=== PATIENT | male | born 1970 | race Caucasian/White ===

== ENCOUNTER 2017-03-27 15:42 | Inpatient (IN) | payer OTHER ==
[2017-03-27] MEDS ORDERED: ACETAMINOPHEN TAB 325 MG TAB PO PRN (16:14)
[2017-03-27] MEDS ORDERED: NA PHOS,M-B/NA PHOS,DI-BA 133 ML ENEMA RECTAL PRN (16:14)
[2017-03-27] MEDS ORDERED: MAGNESIUM HYDROXIDE 2,400 MG/10 ML CUP PO PRN (16:14)
[2017-03-27] MEDS ORDERED: ONDANSETRON 4 MG/2 ML VIAL IVP PRN (16:14)
[2017-03-27] MEDS ORDERED: TEMAZEPAM 15 MG CAP PO PRN (16:14)
[2017-03-27] MEDS ORDERED: NALOXONE 0.4 MG/ML 1 ML VIAL IV PRN (16:14)
[2017-03-27] MEDS ORDERED: KETOROLAC 30 MG/ML 1 ML VIAL IVP PRN (16:14)
[2017-03-27] MEDS ORDERED: HYDROmorphone 1 MG/ML 1 ML SYRINGE IV PRN (16:14)
[2017-03-27] MEDS ORDERED: BISACODYL 5 MG TABLET.DR PO PRN (16:14)
[2017-03-27] MEDS ORDERED: IV VANCOMYCIN PER PHARMACY 1 EACH MISC MISCELLANE PRN (16:24)
[2017-03-27] MEDS: LACTATED RINGERS 1,000 ML IV SCH (16:35)
[2017-03-27 16:57] LABS: Basophils % (A) 1 %; CHCM 33.2; Eosinophils # (A) 0.2 k/uL (0-0.7); Eosinophils % (A) 2 %; HCT 40.4 % (39.0-53.0); HDW 2.26; HGB 13.7 gm/dL (13.0-17.5); Luc # (Auto) 0.18; Luc % (Auto) 2; Lymphocytes # (A) 1.4 k/uL (1.0-4.8); Lymphocytes % (A) 17 %; MCH 30.7 pg (25.0-35.0); MCHC 33.9 g/dL (31.0-37.0); MCV 90.5 fL (80.0-100.0); Mean Platelet Volume 6.9; Monocytes # (A) 0.5 k/uL (0-1.0); Monocytes % (A) 6 %; Neutrophils # (A) 5.9 k/uL (1.3-7.7); Neutrophils % (A) 72 %; RBC 4.46 m/uL (4.30-5.90); RDW 12.8 % (11.5-15.5); WBC 8.1 k/uL (3.8-10.6); WBC (Perox) 8.26
[2017-03-27 17:02] LABS: ALT 55 U/L (21-72); AST 52 U/L (17-59); Alkaline Phosphatase 77 U/L (38-126); Anion Gap 10 mmol/L; Blood Urea Nitrogen 15 mg/dL (9-20); Carbon Dioxide 23 mmol/L (22-30); Chloride 107 mmol/L (98-107); Glucose 113 mg/dL (74-99); Non-African American GFR(MDRD) >60 (>60 ml/min/1.73 sqM); Potassium 4.1 mmol/L (3.5-5.1); Sodium 140 mmol/L (137-145); Total Bilirubin 1.2 mg/dL (0.2-1.3); Total Protein 7.6 g/dL (6.3-8.2)
[2017-03-27] MEDS ORDERED: VANCOMYCIN 1,750 MG in SODIUM CHLORIDE 0.9% 250 ML IVPB ONE (17:30)
[2017-03-27] MEDS ORDERED: KETOROLAC 30 MG/ML 1 ML VIAL IVP STA (21:56)
--- NOTE | 2017-03-27 22:33 | P.CONS ---
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 Some metal slag had dripped and he inadvertently placed his elbow onto the hot metal. He did receive a burn. He was treated locally. Recently started to have some increasing amount of pain into his forearm and elbow. He started to have some swelling and warmth. He was seen by his primary care physician. He was referred to orthopedics and upon their evaluation was admitted to hospital for a course of antibiotic therapy. Goal for stay is for antibiotics to avoid incision and drainage of the olecronon bursa. Patient denies high-grade fever chills rigors or sweats. The arm however is quite tender. He has pain with range of motion. There is pain when he touches the elbow and forearm area. He definitely notes the area of warmth and erythema. He has not had this problem in the past. Review of Systems HEENT:Denies headache or acute visual change. Denies sinus or mouth discomforts. Denies neck stiffness or pain. Denies significant oral cavity pain. Denies difficulty on swallowing. Lungs: Denies significant shortness of breath, cough, sputum production, or hemoptysis. Cardiovascular: Denies significant shortness of breath, chest pain, chest wall pain, orthopnea, dyspnea on exertion, syncope Gastrointestinal:Denies nausea, vomiting, diarrhea, constipation, hematemesis, melena, hematochezia. No no significant change of bowel habit noticed. Musculoskeletal: Per the HPI pain to the right arm. Skin: As per the HPI lesions of the right elbow from burn Neuro: Denies headache or visual change. Denies any new onset weakness or difficulty with ambulation. Denies falls or seizures. Psychiatric:Denies anxiety or depression. Endocrine: Denies significant fatigue, denies significant weight loss or weight gain. Past Medical History History of Any Multi-Drug Resistant Organisms: None Reported Additional Psychological History / Comment(s): . 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 Stopped smoking 5 years ago. No significant alcohol or recreational drug use. Multiple professional tattoos Smoking Status: Former smoker Medications and Allergies Home Medications and Allergies Comment(s): Current Medications Acetaminophen (Tylenol Tab) 650 mg PO Q6HR PRN PRN Reason: Mild Pain or Fever > 100.5 Bisacodyl (Dulcolax) 5 mg PO DAILY PRN PRN Reason: Constipation Hydromorphone HCl (Dilaudid) 1 mg IV Q3HR PRN PRN Reason: Severe Pain Lactated Ringer's (Lactated Ringers) 1,000 mls @ 20 mls/hr IV .Q24H HENRY Last Admin: 03/27/17 16:35 Dose: 20 mls/hr Vancomycin HCl 1,500 mg/ (Sodium Chloride) 250 mls @ 125 mls/hr IVPB Q8HR HENRY Cefazolin Sodium 2 gm/ Sodium (Chloride) 100 mls @ 100 mls/hr IVPB Q8HR [facility]ENRY Ketorolac Tromethamine (Toradol) 30 mg IVP Q6HR PRN PRN Reason: Moderate Pain Stop: 04/01/17 16:15 Magnesium Hydroxide (Milk Of Magnesia) 2,400 mg PO DAILY PRN PRN Reason: Constipation Miscellaneous Information (Pharmacy To Dose Iv Vancomycin) 1 each MISCELLANE DIRECTED PRN PRN Reason: Per Protocol Mupirocin (Bactroban Oint) 1 applic TOPICAL TID [facility] Naloxone HCl (Narcan) 0.2 mg IV Q2M PRN PRN Reason: Opioid Reversal Ondansetron HCl (Zofran) 4 mg IVP Q8HR PRN PRN Reason: Nausea And Vomiting Sodium Biphosphate/Sodium Phosphate (Fleet Adult) 133 ml RECTAL ONCE PRN PRN Reason: Constipation Temazepam (Restoril) 15 mg PO HS PRN PRN Reason: Insomnia Home Medications Medication Instructions Recorded Confirmed Type No Known Home Medications [No 03/27/17 03/27/17 History Known Home Medications] Allergies Allergy/AdvReac Type Severity Reaction Status Date / Time No Known Allergies Allergy Verified 03/27/17 16:29 Physical Exam Vitals: Vital Signs Temp Pulse Resp BP Pulse Ox 03/27/17 16:14 98 03/27/17 16:00 97.5 F L 77 16 138/74 98 Intake and Output 03/27/17 03/27/17 03/27/17 06:59 14:59 22:59 Other: Voiding Method Toilet # Voids 1 Weight 74.843 kg Patient Weight 03/28/17 06:59 Weight 74.843 kg 46-year-old male who is physically fit presents for the pain to his right elbow. HEENT: Anicteric conjunctiva are pink and moist nasal mucosa grossly intact without significant lesions, there is no thrush. Neck: The neck is supple without significant lymphadenopathy or thyromegaly. Lungs: Good bilateral air entry without significant crackles or wheezing. There is no significant bronchial sounds. There is no egophony or dullness. Heart: Regular rate and rhythm with an audible S1-S2, no S3 no S4. There is no significant murmur click or rub, PMI was nondisplaced. Abdomen: Positive bowel sounds soft and nontender without palpable masses or organomegaly. There was no guarding or rebound. Extremities: Left arm reveals evidence of no abnormalities. IV site is intact. Right upper extremity shows evidence of the recent burn to near the elbow. There is evidence of the significant erythema and swelling to the forearm that is quite tender. There is also tenderness over the olcreonon bursa The lower extremities are free from significant edema. The peripheral pulses were 2+ and symmetric. Neuro: Awake alert oriented to person place and time. There are no acute new gross focal sensory motor deficits. Results CBC & Chem 7: 03/27/17 16:38 03/27/17 16:38 Labs: Abnormal Lab Results - Last 24 Hours (Table) 03/27/17 Range/Units 16:38 Glucose 113 H (74-99) mg/dL Laboratory Results WBC 8.1 k/uL (3.8-10.6) 03/27/17 16:38 RBC 4.46 m/uL (4.30-5.90) 03/27/17 16:38 Hgb 13.7 gm/dL (13.0-17.5) 03/27/17 16:38 Hct 40.4 % (39.0-53.0) 03/27/17 16:38 MCV 90.5 fL (80.0-100.0) 03/27/17 16:38 MCH 30.7 pg (25.0-35.0) 03/27/17 16:38 MCHC 33.9 g/dL (31.0-37.0) 03/27/17 16:38 RDW 12.8 % (11.5-15.5) 03/27/17 16:38 Plt Count 290 k/uL (150-450) 03/27/17 16:38 Neutrophils % 72 % 03/27/17 16:38 Lymphocytes % 17 % 03/27/17 16:38 Monocytes % 6 % 03/27/17 16:38 Eosinophils % 2 % 03/27/17 16:38 Basophils % 1 % 03/27/17 16:38 Neutrophils # 5.9 k/uL (1.3-7.7) 03/27/17 16:38 Lymphocytes # 1.4 k/uL (1.0-4.8) 03/27/17 16:38 Monocytes # 0.5 k/uL (0-1.0) 03/27/17 16:38 Eosinophils # 0.2 k/uL (0-0.7) 03/27/17 16:38 Basophils # 0.0 k/uL (0-0.2) 03/27/17 16:38 Sodium 140 mmol/L (137-145) 03/27/17 16:38 Potassium 4.1 mmol/L (3.5-5.1) 03/27/17 16:38 Chloride 107 mmol/L (98-107) 03/27/17 16:38 Carbon Dioxide 23 mmol/L (22-30) 03/27/17 16:38 Anion Gap 10 mmol/L 03/27/17 16:38 BUN 15 mg/dL (9-20) 03/27/17 16:38 Creatinine 0.85 mg/dL (0.66-1.25) 03/27/17 16:38 Est GFR (MDRD) Af Amer >60 (>60 ml/min/1.73 sqM) 03/27/17 16:38 Est GFR (MDRD) Non-Af >60 (>60 ml/min/1.73 sqM) 03/27/17 16:38 Glucose 113 mg/dL (74-99) H 03/27/17 16:38 Calcium 9.0 mg/dL (8.4-10.2) 03/27/17 16:38 Total Bilirubin 1.2 mg/dL (0.2-1.3) 03/27/17 16:38 AST 52 U/L (17-59) 03/27/17 16:38 ALT 55 U/L (21-72) 03/27/17 16:38 Alkaline Phosphatase 77 U/L (38-126) 03/27/17 16:38 Total Protein 7.6 g/dL (6.3-8.2) 03/27/17 16:38 Albumin 4.3 g/dL (3.5-5.0) 03/27/17 16:38 Assessment and Plan (1) Bursitis of elbow Narrative/Plan: 46 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 Is swelling to the bursa also. Will use vanco with ancef for now. elevate on pillows and Kpad. Toradol for pain and swelling. Surgery is following and if not improved may need I&D . Add MVI ensure protein intake. Td is up to date Status: Acute (2) Cellulitis of arm, right Status: Acute
[2017-03-27] MEDS: ceFAZolin 2 GM in SODIUM CHLORIDE 0.9% 100 ML IVPB SCH (22:43)
[2017-03-27] MEDS: MUPIROCIN 2% OINT 22 GM TUBE TOPICAL SCH (22:43)
[2017-03-28] MEDS: VANCOMYCIN 1,500 MG in SODIUM CHLORIDE 0.9% 250 ML IVPB SCH ×4 (00:12→23:31)
[2017-03-28] MEDS: ceFAZolin 2 GM in SODIUM CHLORIDE 0.9% 100 ML IVPB SCH ×3 (07:09→22:01)
[2017-03-28] MEDS: MUPIROCIN 2% OINT 22 GM TUBE TOPICAL SCH ×3 (07:12→20:34)
--- NOTE | 2017-03-28 10:47 | CONS ---
DATE OF SERVICE: 03/27/2017 REASON FOR CONSULTATION: Advice regarding cellulitis and other medical issues requested by Orthopedic Surgery. HISTORY OF PRESENT ILLNESS: This 46-year-old gentleman with past medical history of no significant illness had injury on the right elbow. The patient initially took Bactrim. Because of lack of improvement, the patient had increasing pain, swelling and redness, the patient went to [facility] and was admitted for further evaluation and treatment. There is no history of fever, rigors. No history of headache, loss of consciousness or seizures. The blood sugar was found to be 113. PAST MEDICAL HISTORY: No history of cardiopulmonary illness. Medications prior to admission include: None. ALLERGIES: None. FAMILY HISTORY: No history of heart disease or strokes in the family. SOCIAL HISTORY: Previous history of smoking. No history of alcohol intake. REVIEW OF SYSTEMS: ENT: No diminished hearing or vision. CARDIOVASCULAR: No angina, palpitations. RESPIRATORY: No cough. GI: No nausea. : No dysuria. NERVOUS SYSTEM: No numbness or weakness. ALLERGY/IMMUNOLOGY: No asthma or hayfever. MUSCULOSKELETAL: As mentioned earlier. HEMATOLOGY/ONCOLOGY: No history of anemia. ENDOCRINE: No history of diabetes or hypothyroidism. CONSTITUTIONAL: As mentioned earlier. DERMATOLOGY: Negative. RHEUMATOLOGY: Negative. PSYCHIATRY: As mentioned earlier. PHYSICAL EXAMINATION: The patient is alert and oriented x3. Pulse is 77, blood pressure 138/75, respirations 16, temperature 97.4, pulse ox 98% on room air. HEENT: Conjunctivae normal. NECK: No jugular venous distention. CARDIOVASCULAR: S1, S2. RESPIRATORY: Breath sounds diminished at the bases. No rhonchi, no crackles. ABDOMEN: Soft, nontender, no mass palpable. LEGS: No edema, no swelling. NERVOUS SYSTEM: Higher function as mentioned. Moves all four limbs. No focal motor sensory deficits. LYMPHATICS: No lymphadenopathy in the neck, axillae or groin. SKIN: No rash, ulcer or bleeding. Erythema of the right elbow and right forearm. Significant swelling and pain and tenderness in the right elbow extending up to the proximal part of the right forearm present. Movements are slightly painful of the right elbow. LABS: CBC within normal limits. Glucose 139. ASSESSMENT: 1. Right elbow cellulitis. 2. Increased random blood sugar. 3. History of nicotine dependence. RECOMMENDATIONS AND DISCUSSION: In this 46-year-old gentleman with past medical history of no medical problems, will monitor the patient closely. Continue the current medications. Continue symptomatic treatment. IV vancomycin has been initiated. I would also recommend a fasting blood glucose and as well as hemoglobin A1c also to rule out the possibility of diabetes mellitus. Otherwise I would recommend to follow closely with primary physician. Thank you for letting us participate in the care of this patient. LIDIA
--- NOTE | 2017-03-28 10:48 | P.HPOR ---
History of Present Illness H&P Date: 03/27/17 Chief Complaint: right elbow olecranon bursitis, cellulitis This is a 46-year-old male who presented to our office today upon referral from his primary care physician with pain, redness and swelling to his right elbow and forearm. 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 He states that it was treated with burn ointment. He states that it had been healing well. However, he developed redness and swelling over the past several days as well as increased pain to the area. He states that he was placed on Bactrim which did not resolve the problem. He is given an IM dose of Rocephin by his primary care physician on 03/26/2017. He states that his symptoms have actually worsened since the antibiotic. He reports no fever or chills. He is not have any other systemic symptoms. It was decided that he needed admission for IV antibiotics and infectious disease evaluation. Past Medical History History of Any Multi-Drug Resistant Organisms: None Reported Additional Psychological History / Comment(s): . 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 Stopped smoking 5 years ago. No significant alcohol or recreational drug use. Multiple professional tattoos Smoking Status: Former smoker Medications and Allergies Home Medications Medication Instructions Recorded Confirmed Type No Known Home Medications [No 03/27/17 03/27/17 History Known Home Medications] Allergies Allergy/AdvReac Type Severity Reaction Status Date / Time No Known Allergies Allergy Verified 03/27/17 16:29 Physical Examination This is a pleasant 46-year-old male in no acute distress. He is alert and oriented 3. Exam of the upper extremities reveals significant erythema with mild fluctuance to the olecranon bursa. There is soft tissue edema throughout the forearm and up into the inner aspect of the upper arm. There is decreased sensation in the ulnar nerve distribution. He has full wrist and finger motion without difficulty or pain. He has pain on extreme motion of the elbow but is able to achieve close to full extension and flexion to 110. No pain with forearm rotation. Neurovascular status to the upper extremities otherwise intact. Capillary refills less than 3 seconds. The remainder of his musculoskeletal exam is unremarkable. Results X-rays show no acute fracture or foreign body. - Labs Labs: Abnormal Lab Results - Last 24 Hours (Table) 03/27/17 Range/Units 16:38 Glucose 113 H (74-99) mg/dL H & H 03/27/17 Range/Units 16:38 Hgb 13.7 (13.0-17.5) gm/dL Hct 40.4 (39.0-53.0) % Result Diagrams: 03/27/17 16:38 03/27/17 16:38 Assessment and Plan (1) Septic olecranon bursitis of right elbow Status: Acute (2) Cellulitis of arm, right Status: Acute Plan: The clinical and x-ray findings are discussed the patient. He is admitted to [facility] for IV antibiotics and infectious disease evaluation. He is placed on vancomycin. There is no plan for surgical intervention at this time. We will await recommendations by Dr. Hall.
--- NOTE | 2017-03-28 10:51 | P.PN ---
<Patricia Carl - Last Filed: 03/28/17 10:48> Subjective Principal diagnosis: Septic olecranon bursitis right elbow. Cellulitis right upper extremity. This is a 46-year-old gentleman who we are following regarding his right upper extremity infection. He was admitted for IV antibiotics. Patient states that he is feeling fine today. He has no new complaints or concerns. He feels that the arm is improving. He reports that his numbness and tingling to the ulnar nerve distribution is resolved. Objective - Vital Signs Vital signs: Vital Signs Temp 97.4 F L 03/28/17 07:00 Pulse 76 03/28/17 07:00 Resp 16 03/28/17 07:00 BP 121/70 03/28/17 07:00 Pulse Ox 98 03/28/17 07:00 Intake & Output 03/27/17 03/28/17 03/28/17 18:59 06:59 18:59 Weight 74.843 kg Other: Voiding Method Toilet Toilet # Voids 1 - Exam This is a pleasant 46-year-old male in no acute distress. He is alert and oriented 3. Exam of the right upper extremity reveals significant improvement in the erythema and swelling to the elbow and forearm. He continues to have some fluctuance to the olecranon bursa. There is less tenderness today with palpation and motion of the elbow and forearm. He has full wrist and finger motion without difficulty or pain. Neurovascular status the upper extremities intact. - Labs CBC & Chem 7: 03/27/17 16:38 03/27/17 16:38 Labs: Abnormal Lab Results - Last 24 Hours (Table) 03/27/17 Range/Units 16:38 Glucose 113 H (74-99) mg/dL Assessment and Plan (1) Septic olecranon bursitis of right elbow Status: Acute (2) Cellulitis of arm, right Status: Acute Plan: The clinical findings are discussed the patient. Dr. Page will evaluate the patient as well. He'll continue with the IV antibiotics for another 24 hours along with the K pad. He will hopefully be discharged to home tomorrow with oral antibiotics. <Dean Page - Last Filed: 03/28/17 11:38> Objective - Vital Signs Vital signs: Vital Signs Temp 97.4 F L 03/28/17 07:00 Pulse 76 03/28/17 07:00 Resp 16 03/28/17 07:00 BP 121/70 03/28/17 07:00 Pulse Ox 98 03/28/17 07:00 Intake & Output 03/27/17 03/28/17 03/28/17 18:59 06:59 18:59 Weight 74.843 kg Other: Voiding Method Toilet Toilet # Voids 1 - Labs CBC & Chem 7: 03/27/17 16:38 03/27/17 16:38 Labs: Abnormal Lab Results - Last 24 Hours (Table) 03/27/17 Range/Units 16:38 Glucose 113 H (74-99) mg/dL Assessment and Plan Plan: Agree with above. Improving on IV antibiotics. Exam consistent with cellulitis and mild olecranon bursitis. No evidence of a septic elbow joint. Will continue to monitor and await Dr. Hall recommendations for antibiotics. If condition worsens, will consider aspiration.
[2017-03-28] MEDS: LACTATED RINGERS 1,000 ML IV SCH (15:39)
[2017-03-29 00:12] VITALS: TEMP 97.1
[2017-03-29] MEDS: ceFAZolin 2 GM in SODIUM CHLORIDE 0.9% 100 ML IVPB SCH (06:32)
[2017-03-29] MEDS ORDERED: VANCOMYCIN TROUGH DUE 1 EACH MISC MISCELLANE ONE (07:00)
[2017-03-29 07:53] VITALS: BP 125/75; PULSE 69; RESP 16
[2017-03-29 08:00] LABS: Non-African American GFR(MDRD) >60 (>60 ml/min/1.73 sqM)
[2017-03-29] MEDS: VANCOMYCIN 1,500 MG in SODIUM CHLORIDE 0.9% 250 ML IVPB SCH (08:13)
[2017-03-29] MEDS: MUPIROCIN 2% OINT 22 GM TUBE TOPICAL SCH (08:14)
--- NOTE | 2017-03-29 10:05 | P.DS ---
Providers Date of admission: 03/27/17 15:42 Expected date of discharge: 03/29/17 Attending physician: Dean Page Consults: 03/27/17 16:21 Consult Physician Routine Consulting Provider: Monica Clark Consult Reason/Comments: Medical management Do you want consulting provider notified?: Yes 03/27/17 16:22 Consult Physician Routine Consulting Provider: Azael Hall Consult Reason/Comments: eval right elbow Do you want consulting provider notified?: Yes Primary care physician: Stated None - Discharge Diagnosis(es) (1) Septic olecranon bursitis of right elbow Current Visit: Yes Status: Acute (2) Cellulitis of arm, right Current Visit: Yes Status: Acute Hospital Course: This is a 46-year-old male admitted to [facility] on 2016 with septic bursitis of the right elbow. He has been on IV vancomycin and Ancef. He is improving. He reports minimal pain today. He does have a little bit of swelling to the elbow but it is much improved. He has no fever or chills. He has no systemic symptoms. Blood cultures are negative. Patient is discharged to home on 03/29/[address] Hall will manage antibiotics. He is to follow-up in our office in 1 week for reevaluation. He is to keep the elbow padded and wrapped for comfort and compression. He is to call our office sooner if there are any problems or questions regarding his care. Patient Condition at Discharge: Good Plan - Discharge Summary New Discharge Prescriptions: New Meloxicam [Mobic] 7.5 mg PO DAILY #30 tab Discharge Medication List Meloxicam [Mobic] 7.5 mg PO DAILY #30 tab 03/29/17 [Rx] Follow up Appointment(s)/Referral(s): Patricia Carl, PAC [PHYSICIAN [employer]] - 1 Week Patient Instructions/Handouts: Cellulitis (DC) Activity/Diet/Wound Care/Special Instructions: Regular diet. Keep elbow padded. Antibiotics per Dr Hall. Discharge Disposition: HOME SELF-CARE
== END 2017-03-29 11:27 | disposition home or self-care (01) | DRG 558 ==
LOC: 4MS4W 15:42
PROVIDERS: ADMIT Orthopaedic Surgery; ATTEND Orthopaedic Surgery
DX: M71.121 Other infective bursitis, right elbow (principal); L03.113 Cellulitis of right upper limb; R20.2 Paresthesia of skin; T22.021 Burn of unspecified degree of right elbow; R73.09 Other abnormal glucose; R20.0 Anesthesia of skin; Z87.891 Personal history of nicotine dependence; X18 Contact with other hot metals
CPT/HCPCS: 80053; 80202; 82565; 85025; 87040